=== PATIENT | female | born 1960 | race African-American/Black ===

== ENCOUNTER 2017-10-29 08:39 | Emergency (ER) | payer OTHER, BC ==
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
[2017-10-29] MEDS ORDERED: TETANUS AND DIPHTHERIA TOX/PF 0.5 ML VIAL. VAX IM ONE (09:00)
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
[2017-10-29] MEDS ORDERED: ACET-704 PO (10:26)
[2017-10-29 10:57] VITALS: BP 158/100
== END 2017-10-29 10:35 | disposition home or self-care (01) ==
LOC: ER 08:39
DX: S93.401A Sprain of unspecified ligament of right ankle, initial encounter (principal); S80.02XA Contusion of left knee, initial encounter; S80.01XA Contusion of right knee, initial encounter; E11.9 Type 2 diabetes mellitus without complications; E78.00 Pure hypercholesterolemia, unspecified; I10 Essential (primary) hypertension; Z88.2 Allergy status to sulfonamides; Z88.6 Allergy status to analgesic agent; Z88.8 Allergy status to other drugs, medicaments and biological substances; V49.9XXA Car occupant (driver) (passenger) injured in unspecified traffic accident, initial encounter; Y93.89 Activity, other specified; Y99.8 Other external cause status; Y92.488 Other paved roadways as the place of occurrence of the external cause
CPT/HCPCS: 73562; 73590; 73610; 73630; 82947; 90471; 90714; 99285

== ENCOUNTER 2018-11-28 11:06 | Emergency (ER) | payer BC, OTHER ==
[~2018-11-28] VITALS: Ht 162.6 cm; Wt 93.0 kg
[~2018-11-28 11:06] MED LIST: ACET-704 PO
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
[2018-11-28] MEDS ORDERED: TRAM-48 PO (12:31)
[2018-11-28 12:40] VITALS: BP 140/93
== END 2018-11-28 12:41 | disposition home or self-care (01) ==
LOC: ER 11:06
DX: M53.3 Sacrococcygeal disorders, not elsewhere classified (principal); M54.5 Low back pain; E11.9 Type 2 diabetes mellitus without complications; E78.00 Pure hypercholesterolemia, unspecified; I10 Essential (primary) hypertension; Z88.6 Allergy status to analgesic agent; Z88.2 Allergy status to sulfonamides; Z88.1 Allergy status to other antibiotic agents; Z88.8 Allergy status to other drugs, medicaments and biological substances
CPT/HCPCS: 72220; 99283

== ENCOUNTER → 2021-04-19 | Outpatient (CLI) | payer OTHER, BC ==
[~2021-04-19] MED LIST changes: +TRAM-48 PO
--- NOTE | 2021-04-19 12:12 | RAD ---
EXAM: Chest, 2 views. HISTORY: Dialysis. COMPARISON: None. FINDINGS: 2 views of the chest are obtained. There is no infiltrate, pleural effusion or pneumothorax . The heart is normal in size. IMPRESSION: No acute pulmonary finding. Electronically signed by: Emeli Victor MD (04/19/2021 12:10 PM) [id number]
== END ==
LOC: RAD 10:47
PROVIDERS: ATTEND Nurse Practitioner Adult Health
DX: I12.0 Hypertensive chronic kidney disease with stage 5 chronic kidney disease or end stage renal disease (principal); N18.5 Chronic kidney disease, stage 5; E11.22 Type 2 diabetes mellitus with diabetic chronic kidney disease; E11.21 Type 2 diabetes mellitus with diabetic nephropathy; D64.9 Anemia, unspecified; N25.81 Secondary hyperparathyroidism of renal origin; R80.9 Proteinuria, unspecified; Z68.33 Body mass index [BMI] 33.0-33.9, adult
CPT/HCPCS: 71046; 86704; 86706; 86803; 87340

== ENCOUNTER → 2021-11-29 | Outpatient (CLI) | payer BC ==
--- NOTE | 2021-11-29 10:30 | CARD ---
MR#: [id number] Date of Study: 11/29/2021 Ordering Physician: CHRISTINE RIDDLE, Referring Physician: CHRISTINE RIDDLE, Tech: Nba Coy [facility] APPROVED REPORT EXAM: Two-dimensional and M-mode echocardiogram with Doppler and color Doppler. Other Information Quality : FairHR: 85bpm Rhythm : NSR INDICATION Pre-Op End stage renal disease. Pre kidney transplant. RISK FACTORS Hypertension Hyperlipidemia Diabetes 2D DIMENSIONS Left Atrium(2D)3.7 (1.6-4.0cm)IVSd1.5 (0.7-1.1cm) Aortic Root(2D)3.4 (2.0-3.7cm)LVDd3.6 (3.9-5.9cm) LVOT Diameter2.0 (1.8-2.4cm)PWd1.5 (0.7-1.1cm) LVDs2.3 (2.5-4.0cm)FS (%) 37.5 % SV38.2 mlLVEF(%)68.4 (>50%) Aortic Valve AoV Peak Francisco.110.4cm/sAoV VTI22.0cm AO Peak GR.4.9mmHgLVOT Peak Francisco.88.9cm/s LVOT VTI 17.67cmAO Mean GR.3mmHg TISH (VMAX)2.31rw3DFP (VTI)2.60cm2 Mitral Valve MV E Oyzrmnjn68.1cm/sMV E Peak Gr.4mmHg MV DECEL [id number] A Eowjhlok86.0cm/s MV E Mean Gr.2mmHgE/A Ratio0.9 Pulmonary Valve PV Peak Tdmsifud063.2cm/sPV Peak Grad.4mmHg Tricuspid Valve TR P. Kgfgrdps914vf/sTR Peak Gr.20mmHg Pulmonary Vein S1 Tuyslyad47.2cm/sD2 Figdvsnz11.2cm/s LEFT VENTRICLE The left ventricle is normal size. There is moderate concentric left ventricular hypertrophy. The lef t ventricular systolic function is normal. The Ejection Fraction is 55-60%. There is normal LV segmen lobo wall motion. Transmitral Doppler flow pattern is Grade I-abnormal relaxation pattern. No left marc tricle thrombus noted on this study. There is no ventricular septal defect visualized. There is no le ft ventricular aneurysm. There is no mass noted in the left ventricle. RIGHT VENTRICLE The right ventricle is normal size. There is normal right ventricular wall thickness. The right ventr icular systolic function is normal. ATRIA The left atrium size is normal. The right atrium size is normal. The interatrial septum is intact wit h no evidence for an atrial septal defect or patent foramen ovale as noted on 2-D or Doppler imaging. AORTIC VALVE The aortic valve is normal in structure and function. Doppler and Color Flow revealed no significant aortic regurgitation. There is no significant aortic valvular stenosis. There is no aortic valvular v egetation. MITRAL VALVE The mitral valve is normal in structure and function. There is no evidence of mitral valve prolapse. There is no mitral valve stenosis. Doppler and Color Flow revealed no mitral valve regurgitation note d. TRICUSPID VALVE The tricuspid valve is normal in structure and function. Doppler and Color Flow revealed trace tricus pid regurgitation. There is no tricuspid valve prolapse or vegetation. There is no tricuspid valve st enosis. PULMONIC VALVE The pulmonary valve is normal in structure and function. Doppler and Color Flow revealed no pulmonic valvular regurgitation. There is no pulmonic valvular stenosis. GREAT VESSELS The aortic root is normal in size. The ascending aorta is normal in size. The pulmonary artery is nor mal. The IVC is normal in size and collapses >50% with inspiration. PERICARDIAL EFFUSION There is no pleural effusion. There is no evidence of significant pericardial effusion. Critical Notification Critical Value: No <Conclusion> The left ventricular systolic function is normal. The Ejection Fraction is 55-60%. There is normal LV segmental wall motion. Transmitral Doppler flow pattern is Grade I-abnormal relaxation pattern. Trace tricuspid regurgitation. There is no evidence of significant pericardial effusion. Signed by : Elias Duenas, Electronically Approved : 11/29/2021 10:30:02
== END ==
LOC: ECHO 09:01
PROVIDERS: ATTEND Internal Medicine
DX: Z01.818 Encounter for other preprocedural examination (principal); I51.7 Cardiomegaly; N18.6 End stage renal disease
CPT/HCPCS: 93306

== ENCOUNTER 2021-12-09 07:24 | Emergency (ER) | payer BC ==
[~2021-12-09] VITALS: Ht 162.6 cm; Wt 89.4 kg
[2021-12-09 07:53] VITALS: BP 121/89
[2021-12-09] MEDS ORDERED: HYDR30CR74 TP (08:42)
[2021-12-09] MEDS ORDERED: CETI10TA74 PO (08:42)
[2021-12-09] MEDS ORDERED: FAMO-63 PO (08:42)
--- NOTE | 2021-12-09 08:42 | PHYS DOC ---
Past History Past Medical History: Diabetes, High Cholesterol, Hypertension Additional Past Medical Histor: kidney disease on dialysis TTS Past Surgical History: Other Additional Past Surgical Histo: fistula Smoking: Non-smoker Alcohol Use: None Drug Use: None Adult General Chief Complaint Chief Complaint: SKIN PROBLEM HPI HPI The patient is a 61-year-old female with a history of hypertension, hyperlipidemia, eou-esmazqf-[id number] diabetes and end-stage renal disease on hemodialysis and compliant. Ms. Rooney wore a necklace yesterday which she had not worn in a while and then woke up with a few hives to her posterior and lateral neck corresponding to the location of the necklace the day prior. No other symptoms; no fevers, nausea or vomiting, swelling of lips or face or throat or tongue, pain or difficulty swallowing, shortness of breath, GI upset. Alert, pleasantly and appropriately interactive and in no distress. No therapy for symptoms prior to arrival. Review of Systems Review of Systems A 12 point review of systems was completed and was negative except where noted in HPI above. Allergies Allergies Allergies Coded Allergies Type Severity Reaction Last Updated Verified aspirin Allergy Severe throat swelling 10/29/17 Yes Sulfa (Sulfonamide Antibiotics) Allergy Intermediate rash 10/29/17 Yes levofloxacin Allergy Intermediate rash 10/29/17 Yes lisinopril Allergy Intermediate cough 10/29/17 Yes aluminum hydroxide Allergy Unknown 10/29/17 Yes calcium carbonate Allergy Unknown 10/29/17 Yes magnesium Allergy Unknown 10/29/17 Yes magnesium carbonate Allergy Unknown 10/29/17 Yes simethicone Allergy Unknown 10/29/17 Yes Physical Exam Physical Exam 61-year-old female appearing nontoxic and in no acute distress. Head is normocephalic and atraumatic. Neck is supple and nontender. Few urticaria noted to posterior and bilateral lateral neck, isolated. No neck swelling. Fanny pharynx is moist. No posterior oropharyngeal erythema, tonsillar exudate or swelling or uvular deviation. Patient is tolerating secretions normally and speaking comfortably in a normal tone of voice. Lungs are clear to auscultation at all stations. There is a normal S1 and S2 without rubs or gallops and capillary refill is appropriate, less than 2 seconds globally. Abdomen is soft, nontender and nondistended. Skin is warm and dry without cyanosis, clubbing or edema. Psychiatrically, the patient demonstrates appropriate mood and affect and is alert. Current Patient Data Vital Signs Vital Signs Date Time Temp Pulse Resp B/P (MAP) Pulse Ox O2 Delivery O2 Flow Rate FiO2 12/09/21 07:53 98.3 94 18 121/89 (100) 98 Room Air EKG EKG [] Radiology/Procedures Radiology/Procedures [] Heart Score C/O Chest Pain: No Risk Factors: Risk Factors: DM, Current or recent (<one month) smoker, HTN, HLP, family history of CAD, obesity. Risk Scores: Risk Factors: DM, Current or recent (<one month) smoker, HTN, HLP, family history of CAD, obesity. Course & Med Decision Making Course & Med Decision Making Mild localized urticarial rash; likely allergen was the necklace patient wore y . Will prescribe topical hydrocortisone and Benadryl and Zyrtec and will have the patient follow-up closely with primary care. She understands that if he feels worse instead of better or develops other new symptoms of concern that he should return to the emergency department right away for reevaluation. All questions are answered. Dragon Disclaimer Dragon Disclaimer This electronic medical record was generated, in whole or in part, using a voice recognition dictation system. Departure Departure: Impression: Primary Impression: Acute urticaria Disposition: HOME / SELF CARE / HOMELESS Condition: STABLE Referrals: BHARTI GARCIA (PCP) Patient Instructions: [place] Additional Instructions: Follow-up very closely with your primary care doctor in the office in the next 2 to 4 days for a reevaluation of your symptoms and a discussion of next best steps in care. Apply the hydrocortisone ointment twice a day to your neck. Take the Zyrtec and Pepcid antihistamines as prescribed for the next 3 days. Return to the emergency department right away for worsening symptoms of any kind or with any other new symptoms of concern. Scripts Famotidine (PEPCID) 20 Mg Tablet 1 TAB PO BID for rash for 3 Days, #6 TAB 3 Refills Prov: ELLA POSADAS MD 12/09/21 Cetirizine Hcl (ZYRTEC) 10 Mg Tablet 1 TAB PO DAILY for rash for 3 Days, #3 TAB 2 Refills Prov: ELLA POSADAS MD 12/09/21 Hydrocortisone (Hydrocortisone) 30 Gm Cream.appl 1 [place] TP BID for itch, #30 GM 0 Refills Prov: ELLA POSADAS MD 12/09/21 ELLA POSADAS MD Dec 09, 2021 08:42
== END 2021-12-09 08:56 | disposition home or self-care (01) ==
LOC: ER 07:24
DX: L50.8 Other urticaria (principal); I12.0 Hypertensive chronic kidney disease with stage 5 chronic kidney disease or end stage renal disease; E11.22 Type 2 diabetes mellitus with diabetic chronic kidney disease; N18.6 End stage renal disease; E78.00 Pure hypercholesterolemia, unspecified; E78.5 Hyperlipidemia, unspecified; Z99.2 Dependence on renal dialysis; Z88.6 Allergy status to analgesic agent; Z88.2 Allergy status to sulfonamides; Z88.1 Allergy status to other antibiotic agents; Z88.8 Allergy status to other drugs, medicaments and biological substances
CPT/HCPCS: 99283

== ENCOUNTER → 2021-12-15 | Outpatient (CLI) | payer BC ==
[2021-12-09 07:53] VITALS: BP 121/89
[~2021-12-15] MED LIST changes: +CETI10TA74 PO; +FAMO-63 PO; +HYDR30CR74 TP; +REGADENOSON 0.4 MG/5 ML DISP.SYRIN. IV ONE
--- NOTE | 2021-12-15 16:42 | RAD ---
MR#: [id number] Date of Study: 12/15/2021 Ordering Physician: CHRISTINE RIDDLE, Referring Physician: MAITE DIALLO Tech: RT Rashad (R) (N) APPROVED REPORT Test Type: Pharmacological Stress Nurse/Tech: Michael / Tashi Test Indications: Preop-renal transplant Cardiac History: No known cardiac Medications: See EHR Medical History: See EHR Resting Heart Rate: 86 bpm Resting Blood Pressure: 135/72mmHg Pretest Chest Pain: None Pharm. Details Pharmacologic stress testing was performed using 0.4mg per 5ml of regadenoson given intravenously ove r 7-10 seconds. Stress Symptoms Dyspnea, slight headache POST EXERCISE Reason for Termination: Infusion complete Max HR: 104 bpm Blood Pressure response to exercise: Normal blood pressure response during stress. Heart Rate response to exercise: Normal Chest Pain: No. Arrhythmia: No. ST Change: No. INTERPRETATION Stress EKG Conclusion: No EKG changes during stress test Imaging Protocol IMAGE PROTOCOL: Rest Tc-99m/stress Tc-99m 1 day Rest: Stress: Viability: Radiopharm.Tc99m [id number] Sestamibi Dose11.5mCi 32.5mCi Duration 15min. 15min. Img Date 12/15/2021 12/15/2021 Inj-Img [id number]. 60min. Rest Admin Site:IV - Right AntecubitalAdministrator: RT Rashad (R)(N) Stress Admin Site: IV - Right AntecubitalAdministrator: RT Rashad (R)(N) STRESS DATA End Diast. Vol.82.0mlAv. Heart Rate93.0bpm End Syst. Vol.22.0mlCO Index BSA0.0L/min Myocardial Mzmp919.0gEject. Ooyfchgu41.0% Stress Rates Pk. Fill Rate4.87EDV/secLVtime Pk. Fill 162.27msec Pk. Empty Rate5.21ESV/secLVtime Pk. Vajpn753.70msec 09/19 Pk. Fill1.39EDV/sec Stress Scores Regional WT1.00Summed WT3.00 Regional WM0.00Summed WM2.00 The rest and stress images show normal perfusion, normal contraction and thickening. LV Perf. Quant 17 Seg. SSS1.00 17 Seg. SRS3.00 17 Seg. SDS0.00 Stress Defect Extent (% LAD)0.00Rest Defect Extent (% LAD)0.00Rev. Defect Extent (% LAD)0.00 Stress Defect Extent (% LCX) 0.00Rest Defect Extent (% LCX)7.50Rev. Defect Extent (% LCX)0.00 Stress Defect Extent (% RCA)0.00Rest Defect Extent (% RCA)23.30Rev. Defect Extent (% RCA)0.00 Stress Defect Extent (% IJEOMA)0.00Rest Defect Extent (% IJEOMA)5.90Rev. Defect Extent (% IJEOMA)0.00 Other Information Quality:Fair Risk Assessment: Low Risk Conclusion 1. No evidence of EKG changes with stress testing. 2. Normal perfusion at stress/rest. 3. Low risk study. 4. EF > 60%. Signed by : Oscar Roberts, Electronically Approved : 12/15/2021 16:42:24
== END ==
LOC: NM 07:43
PROVIDERS: ATTEND Internal Medicine
DX: Z01.818 Encounter for other preprocedural examination (principal); N18.6 End stage renal disease
CPT/HCPCS: 78452; 93017; A9500; J2785